=== PATIENT | male | born 1990 | race Caucasian/White ===

== ENCOUNTER 2020-12-07 20:57 | Emergency (ER) | payer SELFPAY ==
[~2020-12-07 20:57] MED LIST: ANTIVERT 25MG T25 MG PO; FLONASE 0.05% N16 GM; ZYRTEC10 MG PO
== END 2020-12-07 21:30 | disposition left against medical advice (07) ==
LOC: ER1 20:57
DX: Z53.21 Procedure and treatment not carried out due to patient leaving prior to being seen by health care provider (principal)